=== PATIENT | female | born 1970 | race African-American/Black ===

== ENCOUNTER 2020-11-24 08:13 | Outpatient (CLI) | payer OTHER | END 2020-11-24 08:14 | disposition home or self-care (01) | LOC: BICMAMMO 08:13 | PROVIDERS: ATTEND Family Medicine | DX: Z12.31 Encounter for screening mammogram for malignant neoplasm of breast (principal); N63.15 Unspecified lump in the right breast, overlapping quadrants | CPT/HCPCS: 77063; 77067 ==

== ENCOUNTER 2021-02-03 09:10 | Outpatient (CLI) | payer OTHER | END 2021-02-03 09:11 | disposition home or self-care (01) | LOC: BICULT 09:10 | PROVIDERS: ATTEND Family Medicine | DX: R92.8 Other abnormal and inconclusive findings on diagnostic imaging of breast (principal) ==